=== PATIENT | female | born 1990 | race African-American/Black ===

== ENCOUNTER 2016-12-29 21:14 | Emergency (ER) | payer OTHER ==
[~2016-12-29] VITALS: Ht 157.5 cm; Wt 79.4 kg
[~2016-12-29 21:14] MED LIST: CIPR500T PO; METR500T PO; NAPR500T PO; OXYC-323 PO; PHEN-318 PO; SULF1TAB24 PO
[2016-12-29 21:29] VITALS: BP 132/65
--- NOTE | 2016-12-29 21:43 | PHYS DOC ---
Past Medical History Past Medical History: Other Additional Past Medical Histor: ectopic Past Surgical History: Other Additional Past Surgical Histo: ectopic , 2 Alcohol Use: Occasionally Drug Use: None Adult General Chief Complaint Chief Complaint: ABDOMINAL PAIN HPI HPI Patient is a 26 year old female who presents with complaint of right lower quadrant abdominal pain. Patient states her symptoms started yesterday and have progressively worsened today. Patient also states that she started her menstrual period today. Patient states that she is concerned because "this feels exactly like it did when I had my ectopic ." The patient states that the pain seems to improve if she applies pressure to her right lower quadrant. Patient denies any associated fever, nausea, vomiting, or diarrhea. The patient rates her pain currently as 8 out of 10. Patient denies radiation of pain into her back or groin. The patient has not taken any medications to help with her symptoms at this time. Pain seems to worsen with movement or with laughing. Review of Systems Review of Systems Constitutional: Denies fever or chills [] Eyes: Denies change in visual acuity, redness, or eye pain [] HENT: Denies nasal congestion or sore throat [] Respiratory: Denies cough or shortness of breath [] Cardiovascular: Denies chest pain or edema [] GI: Abdominal pain, denies nausea, vomiting, bloody stools or diarrhea [] : Vaginal bleeding, denies dysuria or hematuria [] Musculoskeletal: Denies back pain or joint pain [] Integument: Denies rash or skin lesions [] Neurologic: Denies headache, focal weakness or sensory changes [] Current Medications Current Medications Current Medications Medications (Trade) Dose Ordered Sig/[facility] Start Time Stop Time Status Last Admin Dose Admin Fentanyl Citrate (Fentanyl 2ml Vial) 50 mcg PRN Q15MIN PRN 12/29/16 21:45 12/30/16 21:44 12/29/16 22:21 50 MCG Info (Do NOT chart on this entry -- for MONITORING) 1 each PRN DAILY PRN 12/29/16 22:15 12/31/16 22:14 Iohexol (Omnipaque 300 Mg/ml) 75 ml 1X ONCE 12/29/16 22:30 12/29/16 22:31 DC Ondansetron HCl (Zofran) 4 mg 1X ONCE 12/29/16 22:00 12/29/16 22:01 DC 12/29/16 22:20 4 MG Sodium Chloride 1,000 ml @ 1,000 mls/hr Q1H 12/29/16 22:00 12/29/16 22:59 12/29/16 22:20 1,000 MLS/HR Allergies Allergies Allergies Coded Allergies Type Severity Reaction Last Updated Verified No Known Drug Allergies 12/27/14 No Physical Exam Physical Exam Constitutional: Alert, afebrile, appears in mild discomfort. [] HENT: Normocephalic, atraumatic, bilateral external ears normal, oropharynx moist, no oral exudates, nose normal. [] Eyes: PERRLA, EOMI, conjunctiva normal, no discharge. [] Neck: Normal range of motion, no tenderness, supple, no stridor. [] Cardiovascular:Heart rate regular rhythm, no murmur [] Lungs & Thorax: Bilateral breath sounds clear to auscultation [] Abdomen: Bowel sounds normal, soft, right lower quadrant and suprapubic tenderness to palpation, no guarding or rebound tenderness, no masses, no pulsatile masses. [] Skin: Warm, dry, no erythema, no rash. [] Back: No tenderness, no CVA tenderness. [] Extremities: No tenderness, no cyanosis, no clubbing, ROM intact, no edema. [] Neurologic: Alert and oriented X 3, normal motor function, normal sensory function, no focal deficits noted. [] Current Patient Data Vital Signs Vital Signs Date Time Temp Pulse Resp B/P (MAP) Pulse Ox O2 Delivery O2 Flow Rate FiO2 12/29/16 22:21 20 Room Air 12/29/16 21:29 97.7 94 132/65 (87) 98 97.7 Lab Values Laboratory Tests Test 12/29/16 20:35 12/29/16 21:25 12/29/16 21:42 POC Urine HCG, Qualitative Hcg negative (Negative) Urine Collection Type Void Urine Color Yellow Urine Clarity Clear Urine pH 7.5 Urine Specific Adger 1.025 Urine Protein Negative mg/dL (NEG-TRACE) Urine Glucose (UA) Negative mg/dL (NEG) Urine Ketones (Stick) Negative mg/dL (NEG) Urine Blood Moderate (NEG) Urine Nitrite Negative (NEG) Urine Bilirubin Negative (NEG) Urine Urobilinogen Dipstick 1.0 mg/dL (0.2 mg/dL) Urine Leukocyte Esterase Negative (NEG) Urine RBC 1-2 /HPF (0-2) Urine WBC 1-4 /HPF (0-4) Urine Squamous Epithelial Cells Few /LPF Urine Bacteria Few /HPF (0-FEW) Urine Mucus Slight /LPF White Blood Count 11.2 x10^3/uL (4.0-11.0) H Red Blood Count 4.40 x10^6/uL (3.50-5.40) Hemoglobin 12.6 g/dL (12.0-15.5) Hematocrit 38.6 % (36.0-47.0) Mean Corpuscular Volume 88 fL (79-100) Mean Corpuscular Hemoglobin 29 pg (25-35) Mean Corpuscular Hemoglobin Concent 33 g/dL (31-37) Red Cell Distribution Width 13.0 % (11.5-14.5) Platelet Count 230 x10^3/uL (140-400) Neutrophils (%) (Auto) 61 % (31-73) Lymphocytes (%) (Auto) 27 % (24-48) Monocytes (%) (Auto) 10 % (0-9) H Eosinophils (%) (Auto) 1 % (0-3) Basophils (%) (Auto) 1 % (0-3) Neutrophils # (Auto) 6.8 x10^3uL (1.8-7.7) Lymphocytes # (Auto) 3.0 x10^3/uL (1.0-4.8) Monocytes # (Auto) 1.1 x10^3/uL (0.0-1.1) Eosinophils # (Auto) 0.2 x10^3/uL (0.0-0.7) Basophils # (Auto) 0.1 x10^3/uL (0.0-0.2) Sodium Level 140 mmol/L (136-145) Potassium Level 3.6 mmol/L (3.5-5.1) Chloride Level 104 mmol/L (98-107) Carbon Dioxide Level 29 mmol/L (21-32) Anion Gap 7 (6-14) Blood Urea Nitrogen 16 mg/dL (7-20) Creatinine 0.9 mg/dL (0.6-1.0) Estimated GFR (Cockcroft-Gault) 92.3 BUN/Creatinine Ratio 18 (6-20) Glucose Level 93 mg/dL (70-99) Calcium Level 8.8 mg/dL (8.5-10.1) Total Bilirubin 0.3 mg/dL (0.2-1.0) Aspartate Amino Transferase (AST) 17 U/L (15-37) Alanine Aminotransferase (ALT) 28 U/L (14-59) Alkaline Phosphatase 59 U/L (46-116) Total Protein 7.5 g/dL (6.4-8.2) Albumin 3.6 g/dL (3.4-5.0) Albumin/Globulin Ratio 0.9 (1.0-1.7) L Lipase 183 U/L (73-393) Laboratory Tests 12/29/16 21:42 Laboratory Tests 12/29/16 21:42 Microbiology 12/29/16 Wet Prep - Final, Complete EKG EKG Not performed [] Radiology/Procedures Radiology/Procedures [facility] [address] [place] [address] IMAGING REPORT Signed PATIENT: TEODORO COPELAND ACCOUNT: [id number] : 1990 LOCATION: ER AGE: 26 SEX: F EXAM STATUS: REG ER ORD. PHYSICIAN: JENNIFER ALEX MD REASON: right-sided abdominal and adnexal pain PROCEDURE: PELVIS COMPLETE Indication: Right-sided abdominal pain and adnexal pain. Transabdominal and transvaginal sonography was performed. The uterus measures 8.3 x 4.1 x 3.9 cm. The endometrium is 9 mm in thickness. No uterine mass is seen. There are cervical nabothian cysts. Right ovary measures 2.9 x 2.2 x 1.7 cm. There is blood flow to the right ovary. The left ovary was not well visualized, but there appears to be blood flow present. No free fluid is seen. No definite noncompressible loop of bowel is seen. IMPRESSION: Limited study due to patient pain. No gross abnormality is detected. Electronically signed by: Gus Dasilva MD (12/29/2016 10:49 PM) [facility] DICTATED and SIGNED BY: GUS DASILVA MD DATE: 12/29/16 [id number] CC: JENNIFER ALEX MD; NO PCP ~ [facility] [address] [place] [address] IMAGING REPORT Signed PATIENT: TEODORO COPELAND ACCOUNT: [id number] : 1990 LOCATION: ER AGE: 26 SEX: F EXAM STATUS: REG ER ORD. PHYSICIAN: JENNIFER ALEX MD REASON: right lower quadrant abdominal pain PROCEDURE: CT ABD PELV W/ IV CONTRST ONLY Indication: Severe right lower quadrant pain. Axial imaging through the abdomen and pelvis was performed after the administration of intravenous contrast. One or more of the following individualized dose reduction techniques were utilized for this examination: 1. Automated exposure control 2. Adjustment of the mA and/or kV according to patient size 3. Use of iterative reconstruction technique No prior studies are available for comparison. The lung bases are clear. The liver and gallbladder are unremarkable. The pancreas and spleen are unremarkable. No adrenal mass is detected. The kidneys are unremarkable. The aorta is nonaneurysmal. The appendix is visualized and near the midline of the pelvis. The appendix is normal in size. No significant periappendiceal inflammation is identified. The small and large bowel loops are normal caliber. There is no ascites. The bladder and uterus are unremarkable. IMPRESSION: Unremarkable postcontrast CT of the abdomen and pelvis. No acute feature is detected. Electronically signed by: Gus Dasilva MD (12/29/2016 10:41 PM) [facility] DICTATED and SIGNED BY: GUS DASILVA MD DATE: 12/29/16 223 CC: JENNIFER ALEX MD; NO PCP ~ [] Course & Med Decision Making Course & Med Decision Making Pertinent Labs and Imaging studies reviewed. (See chart for details) Patient was given IV fentanyl, Zofran, and IV fluids in the emergency department. Patient's ultrasound and CT were negative for acute pathology. Patient's test was negative. Etiology of patient's symptoms are unclear but do not appear to be acutely surgical at this time. The patient will be discharged with prescription for Naprosyn and Delmar to help with symptoms. Advise follow-up in 2-3 days a primary doctor for reevaluation and return to emergency department for any worsening symptoms. Patient voiced understanding and in agreement with treatment plan. Dragon Disclaimer Dragon Disclaimer This electronic medical record was generated, in whole or in part, using a voice recognition dictation system. Departure Departure Impression: Primary Impression: Abdominal pain in female patient Disposition: HOME, SELF-CARE Condition: IMPROVED Referrals: NO PCP (PCP) Patient Instructions: Abdominal Pain, Women Additional Instructions: Follow-up with your primary doctor in 2-3 days for reevaluation. Return to the emergency department for any worsening symptoms. Scripts Hydrocodone/Apap 5-325 (NORCO 5-325 TABLET) 1 Each Tablet 1-2 TAB PO Q4-6HRS Y for PAIN, #15 TAB Prov: JENNIFER ALEX MD 12/29/16 Naproxen (NAPROSYN) 500 Mg Tablet 1 TAB PO BID Y for INFLAMMATION, #20 TAB 0 Refills Prov: JENNIFER ALEX MD 12/29/16 JENNIFER ALEX MD Dec 29, 2016 21:43
[2016-12-29 21:44] LABS: BILIRUBIN,URINE NEGATIVE (NEG); GLUCOSE,URINE NEGATIVE (NEG); NITRITE,URINE NEGATIVE (NEG); PH,URINE 7.5; PROTEIN,URINE NEGATIVE (NEG-TRACE)
[2016-12-29] MEDS ORDERED: fentaNYL PF VIAL 100 MCG/2 ML VIAL IV PRN (21:45)
[2016-12-29 21:50] LABS: BASO # 0.1 x10^3/uL (0.0-0.2); BASO % 1 % (0-3); EOS % 1 % (0-3); HEMATOCRIT 38.6 % (36.0-47.0); HEMOGLOBIN 12.6 g/dL (12.0-15.5); LYMPH % 27 % (24-48); MEAN CORPUSCULAR HEMOGLOBIN 29 pg (25-35); MEAN CORPUSCULAR HGB CONC 33 g/dL (31-37); MEAN CORPUSCULAR VOLUME 88 fL (79-100); MONO % 10 % (0-9); NEUT % 61 % (31-73); PLATELET COUNT 230 x10^3/uL (140-400); WHITE BLOOD COUNT 11.2 x10^3/uL (4.0-11.0)
[2016-12-29 21:55] LABS: BACTERIA,URINE FEW /HPF (0-FEW); SQUAMOUS EPITHELIAL CELL,UR FEW /LPF
[2016-12-29 21:59] LABS: CALCIUM 8.8 mg/dL (8.5-10.1); CREATININE 0.9 mg/dL (0.6-1.0); GFR 92.3; POTASSIUM 3.6 mmol/L (3.5-5.1)
[2016-12-29] MEDS ORDERED: IV NORMAL SALINE 1000ML BAG 1,000 ML IV SCH (22:00)
[2016-12-29] MEDS ORDERED: ONDANSETRON PF 4 MG/2 ML VIAL. IV ONE (22:00)
[2016-12-29 22:05] LABS: ALBUMIN 3.6 g/dL (3.4-5.0); ALBUMIN/GLOBULIN RATIO 0.9 (1.0-1.7); TOTAL BILIRUBIN 0.3 mg/dL (0.2-1.0); TOTAL PROTEIN 7.5 g/dL (6.4-8.2)
[2016-12-29] MEDS ORDERED: CONTRAST GIVEN MC PRN (22:15)
[2016-12-29] MEDS ORDERED: IOHEXOL 300 MG/ML 75 ML VIAL IV ONE (22:30)
--- NOTE | 2016-12-29 22:44 | RAD ---
Indication: Severe right lower quadrant pain. Axial imaging through the abdomen and pelvis was performed after the administration of intravenous contrast. One or more of the following individualized dose reduction techniques were utilized for this examination: 1. Automated exposure control 2. Adjustment of the mA and/or kV according to patient size 3. Use of iterative reconstruction technique No prior studies are available for comparison. The lung bases are clear. The liver and gallbladder are unremarkable. The pancreas and spleen are unremarkable. No adrenal mass is detected. The kidneys are unremarkable. The aorta is nonaneurysmal. The appendix is visualized and near the midline of the pelvis. The appendix is normal in size. No significant periappendiceal inflammation is identified. The small and large bowel loops are normal caliber. There is no ascites. The bladder and uterus are unremarkable. IMPRESSION: Unremarkable postcontrast CT of the abdomen and pelvis. No acute feature is detected. Electronically signed by: Gus Dasilva MD (12/29/2016 10:41 PM) [facility]
--- NOTE | 2016-12-29 22:52 | RAD ---
Indication: Right-sided abdominal pain and adnexal pain. Transabdominal and transvaginal sonography was performed. The uterus measures 8.3 x 4.1 x 3.9 cm. The endometrium is 9 mm in thickness. No uterine mass is seen. There are cervical nabothian cysts. Right ovary measures 2.9 x 2.2 x 1.7 cm. There is blood flow to the right ovary. The left ovary was not well visualized, but there appears to be blood flow present. No free fluid is seen. No definite noncompressible loop of bowel is seen. IMPRESSION: Limited study due to patient pain. No gross abnormality is detected. Electronically signed by: Gus Dasilva MD (12/29/2016 10:49 PM) [facility]
[2016-12-29] MEDS ORDERED: NAPR500T PO (23:02)
[2016-12-29] MEDS ORDERED: HYDR-971 PO (23:02)
== END 2016-12-29 23:13 | disposition home or self-care (01) ==
LOC: ER 21:14
DX: R10.31 Right lower quadrant pain (principal); N93.9 Abnormal uterine and vaginal bleeding, unspecified
CPT/HCPCS: 36415; 74177; 76856; 80053; 81001; 81025; 83690; 85027; 87491; 87591; 96361; 96374; 96375; 99285; J2405; J3010; J7030; Q0111; 96376

== ENCOUNTER 2017-04-17 17:49 | Emergency (ER) | payer SELFPAY ==
[~2017-04-17] VITALS: Ht 157.5 cm; Wt 79.4 kg
[~2017-04-17 17:49] MED LIST changes: +HYDR-971 PO
[2017-04-17 19:07] LABS: BASO % 1 % (0-3); EOS % 2 % (0-3); HEMOGLOBIN 12.5 g/dL (12.0-15.5); LYMPH # 2.3 x10^3/uL (1.0-4.8); LYMPH % 30 % (24-48); MEAN CORPUSCULAR HEMOGLOBIN 29 pg (25-35); MEAN CORPUSCULAR HGB CONC 33 g/dL (31-37); MEAN CORPUSCULAR VOLUME 88 fL (79-100); MONO % 11 % (0-9); NEUT % 57 % (31-73); PLATELET COUNT 225 x10^3/uL (140-400); RED BLOOD COUNT 4.32 x10^6/uL (3.50-5.40); RED CELL DISTRIBUTION WIDTH 13.5 % (11.5-14.5); WHITE BLOOD COUNT 7.6 x10^3/uL (4.0-11.0)
[2017-04-17 19:17] LABS: CALCIUM 9.1 mg/dL (8.5-10.1); CREATININE 0.6 mg/dL (0.6-1.0); GFR 146.2; POTASSIUM 3.6 mmol/L (3.5-5.1)
[2017-04-17 19:23] LABS: ALBUMIN 3.8 g/dL (3.4-5.0); ALBUMIN/GLOBULIN RATIO 1.1 (1.0-1.7); TOTAL BILIRUBIN 0.2 mg/dL (0.2-1.0); TOTAL PROTEIN 7.3 g/dL (6.4-8.2)
--- NOTE | 2017-04-17 19:58 | PHYS DOC ---
Past Medical History Past Medical History: , Other Additional Past Medical Histor: ectopic Past Surgical History: Other Additional Past Surgical Histo: ectopic , 2 Alcohol Use: Occasionally Drug Use: None Adult General Chief Complaint Chief Complaint: ABDOMINAL PAIN IN HPI HPI Patient is a 27 year old female. Presents to the ED with right-sided lower abdominal pain which began yesterday and is worse today. Today, it hurts when she moves, walks, or hits a bump in the car. She denies vaginal bleeding. Patient believes she is . Patient states on March 05 she was 5 weeks and she took the " pill". She bled until March 12 and then stopped. Patient has been sexually active since then but she used a condom and she also took plan B the next day. She is not on any kind of regularly scheduled contraception, no IUD, etc. Patient last Wednesday took a test and it was positive. She then made an appointment for follow-up and that appointment is coming up on April 23. Patient has had a normal appetite. She's had no vomiting. No GI symptoms. She does still have her appendix. She's never had pain like this before. Review of Systems Review of Systems Constitutional: Denies fever or chills [] Respiratory: Denies cough or shortness of breath [] GI: As in history of present illness : Denies urinary symptoms, denies vaginal bleeding Musculoskeletal: Denies back pain or joint pain [] Integument: Denies rash or skin lesions [] All other systems were reviewed and found to be within normal limits, except as documented in this note. Allergies Allergies Allergies Coded Allergies Type Severity Reaction Last Updated Verified No Known Drug Allergies 12/27/14 No Physical Exam Physical Exam Constitutional: Well developed, well nourished, no acute distress, non-toxic appearance. Alert, appropriate, vital signs stable. HENT: Normocephalic, atraumatic, bilateral external ears normal, nose normal. [ ] Eyes: conjunctiva normal, no discharge. [] Neck: Normal range of motion, no stridor. [] Cardiovascular:Heart rate regular rhythm, no murmur [] Lungs & Thorax: Bilateral breath sounds clear to auscultation [] Abdomen: Bowel sounds normal, soft, nondistended, no masses, no pulsatile masses. Tenderness to palpation in the right lower quadrant. Pain in the right lower quadrant with palpation elsewhere on the abdomen. No rebound or guarding. The pain/tenderness is present from McBurney's point to the adnexal area, does not seem to be concentrated or primarily at McBurney's point. Skin: Warm, dry, no erythema, no rash. [] Extremities: No tenderness, no cyanosis, no clubbing, ROM intact, no edema. [] Neurologic: Alert and oriented X 3, normal motor function, normal sensory function, no focal deficits noted. [] Current Patient Data Vital Signs Vital Signs Date Time Temp Pulse Resp B/P (MAP) Pulse Ox O2 Delivery O2 Flow Rate FiO2 04/17/17 19:01 72 119/63 (81) 98 Room Air 04/17/17 17:55 98.2 18 98.2 Lab Values Laboratory Tests Test 04/17/17 18:05 04/17/17 18:55 POC Urine HCG, Qualitative Hcg positive (Negative) White Blood Count 7.6 x10^3/uL (4.0-11.0) Red Blood Count 4.32 x10^6/uL (3.50-5.40) Hemoglobin 12.5 g/dL (12.0-15.5) Hematocrit 38.0 % (36.0-47.0) Mean Corpuscular Volume 88 fL (79-100) Mean Corpuscular Hemoglobin 29 pg (25-35) Mean Corpuscular Hemoglobin Concent 33 g/dL (31-37) Red Cell Distribution Width 13.5 % (11.5-14.5) Platelet Count 225 x10^3/uL (140-400) Neutrophils (%) (Auto) 57 % (31-73) Lymphocytes (%) (Auto) 30 % (24-48) Monocytes (%) (Auto) 11 % (0-9) H Eosinophils (%) (Auto) 2 % (0-3) Basophils (%) (Auto) 1 % (0-3) Neutrophils # (Auto) 4.3 x10^3uL (1.8-7.7) Lymphocytes # (Auto) 2.3 x10^3/uL (1.0-4.8) Monocytes # (Auto) 0.8 x10^3/uL (0.0-1.1) Eosinophils # (Auto) 0.1 x10^3/uL (0.0-0.7) Basophils # (Auto) 0.0 x10^3/uL (0.0-0.2) Maternal Serum HCG Beta Subunit 338 mIU/mL (0-5) H Sodium Level 137 mmol/L (136-145) Potassium Level 3.6 mmol/L (3.5-5.1) Chloride Level 103 mmol/L (98-107) Carbon Dioxide Level 28 mmol/L (21-32) Anion Gap 6 (6-14) Blood Urea Nitrogen 14 mg/dL (7-20) Creatinine 0.6 mg/dL (0.6-1.0) Estimated GFR (Cockcroft-Gault) 146.2 BUN/Creatinine Ratio 23 (6-20) H Glucose Level 94 mg/dL (70-99) Calcium Level 9.1 mg/dL (8.5-10.1) Total Bilirubin 0.2 mg/dL (0.2-1.0) Aspartate Amino Transferase (AST) 15 U/L (15-37) Alanine Aminotransferase (ALT) 15 U/L (14-59) Alkaline Phosphatase 52 U/L (46-116) Total Protein 7.3 g/dL (6.4-8.2) Albumin 3.8 g/dL (3.4-5.0) Albumin/Globulin Ratio 1.1 (1.0-1.7) Laboratory Tests 04/17/17 18:55 Laboratory Tests 04/17/17 18:55 EKG EKG [] Radiology/Procedures Radiology/Procedures Ultrasound read by the radiologist and I discussed findings with the radiologist. Small quantity of free fluid in the cul-de-sac. There is a small focus of different echogenicity of the endometrium could be remnants of previous or blood clot. I don't think it's a blood clot because the patient is not having vaginal bleeding. Also noted a "minimally complex" cyst of the right ovary. I discussed with the radiologist whether this could possibly be an ectopic . He does not think so because it is not increased vascularity and it really does look like an almost simple cyst of the ovary he states. However, we cannot rule out this possibility, especially since the use of the pill.[] Course & Med Decision Making Course & Med Decision Making Pertinent Labs and Imaging studies reviewed. (See chart for details) 27-year-old female who had a positive test following the use of the pill presents with right sided lower abdominal pain. Today her test is positive. Her Quant is 338. The patient may have aborted after using the pill 03/05 and may have become again and subsequently, or possibly she had a missed or incomplete at that time. We will check an ultrasound, patient is agreeable to that plan., Patient's blood type is B+. I discussed the ultrasound findings with Dr. Khan, CONSULTANT on-call. We agreed that we believe it will be safe for the patient to be discharged in stable condition and with good return precautions, follow up on Wednesday for repeat Quant , and continue to follow up with the provider who is overseeing her care at this time. Patient is stable and not having any bleeding. See instructions for plan. [] Dragon Disclaimer Dragon Disclaimer This electronic medical record was generated, in whole or in part, using a voice recognition dictation system. Departure Departure Impression: Primary Impression: Disposition: HOME, SELF-CARE Condition: STABLE Referrals: NO PCP (PCP) ADAL KHAN Jr, MD Additional Instructions: As we discussed, today, your quantitative beta hCG is 338. It's possible that you have gotten again since your recent treatment with the pill. Another possibility is that you still have some retained tissue that is causing beta hCG in your bloodstream. There is a very slight possibility that you could have a right-sided ectopic . The radiologist does not believe your ultrasound shows an ectopic, but this needs to be followed carefully. You need to have repeat quantitative beta hCG on Wednesday, Wednesday at the latest. This should be compared to the result today of 338. Your CONSULTANT doctor can decide what to do based on that. I have prescribed a few pain pills for use as needed, no driving or working while taking these. This is an opiate, take sparingly. Scripts Hydrocodone/Apap 5-325 (NORCO 5-325 TABLET) 1 Each Tablet 1-2 TAB PO Q4-6HRS for PAIN, #10 TAB Prov: NIC GUADARRAMA MD 04/17/17 NIC GUADARRAMA MD Apr 17, 2017 19:58
--- NOTE | 2017-04-17 20:20 | RAD ---
OB <14 WKS W/TV History: Right lower quadrant pain for one day Comparison: None. Findings: Multiple transabdominal sonographic images of the pelvis are submitted. Uterus measured 8.1 x 4.9 x 5.77 m. Left ovary measured 2.4 x 1.8 x 1.8 cm with normal color flow. Right ovary measured 2.7 x 4.2 x 2.4 cm with normal color flow. There is small hypoechoic lesion of the right ovary. Transvaginal ultrasound: Multiple transvaginal sonographic images of the pelvis are submitted. There is a small quantity of free fluid in the posterior cul-de-sac. Uterus measured 9 x 4.7 x 5.4 cm. There is 0.8 cm focus of different echogenicity of the endometrium, somewhat heterogeneous in appearance not associated with internal vascularity on color Doppler imaging. Endometrium measured up to 1.9 cm. Right ovary measured 3.4 x 2.4 x 2.9 cm. There is a hypoechoic lesion of the right ovary up to 2.1 x 2.7 x 1.3 cm, increased through transmission with minimal internal echoes. Left ovary measured 2.4 x 1.9 x 2.1 cm, normal color flow. Impression: 1. There is a small quantity of nonspecific free fluid in the cul-de-sac. There is a small focus of different echogenicity of the endometrium although not associated with internal vascularity, could be due to remnants of previous or blood clot. 2. There is minimally complex cyst of the right ovary. Electronically signed by: Ugo Guerrero MD (04/17/2017 8:17 PM) [facility]
[2017-04-17] MEDS ORDERED: HYDR-971 PO (20:56)
[2017-04-17 21:03] VITALS: BP 115/63
== END 2017-04-17 21:25 | disposition home or self-care (01) ==
LOC: ER 17:49
DX: O26.891 Other specified pregnancy related conditions, first trimester (principal); R10.31 Right lower quadrant pain; Z3A.01 Less than 8 weeks gestation of pregnancy
CPT/HCPCS: 36415; 76801; 76817; 80053; 81025; 84702; 85025; 86900; 86901; 99285-25

== ENCOUNTER → 2017-04-19 | Outpatient (CLI) | payer SELFPAY ==
[2017-04-17 21:03] VITALS: BP 115/63
[~2017-04-19] MED LIST changes: +NAPR-683 PO; -NAPR500T PO
== END | disposition home or self-care (01) ==
LOC: LAB 11:12
PROVIDERS: ATTEND Obstetrics & Gynecology
DX: O09.91 Supervision of high risk pregnancy, unspecified, first trimester (principal); Z3A.11 11 weeks gestation of pregnancy
CPT/HCPCS: 36415; 84702

== ENCOUNTER 2018-03-15 12:22 | Emergency (ER) | payer SELFPAY ==
[2018-03-16] MEDS ORDERED: HYDR-971 PO (17:36)
[2018-03-16] MEDS ORDERED: SULF1TAB24 PO (17:36)
== END 2018-03-15 13:42 | disposition left against medical advice (07) ==
LOC: ER 12:22
DX: N93.9 Abnormal uterine and vaginal bleeding, unspecified (principal); Z53.21 Procedure and treatment not carried out due to patient leaving prior to being seen by health care provider

== ENCOUNTER 2018-03-16 14:48 | Emergency (ER) | payer SELFPAY ==
[~2018-03-16] VITALS: Ht 157.5 cm; Wt 76.2 kg
[2018-03-16 15:10] VITALS: BP 121/65
--- NOTE | 2018-03-16 15:26 | PHYS DOC ---
Past Medical History Past Medical History: , Other Additional Past Medical Histor: ectopic Past Surgical History: Other Additional Past Surgical Histo: ectopic , 2 Alcohol Use: Occasionally Drug Use: None Adult General Chief Complaint Chief Complaint: ABDOMINAL PAIN HPI HPI Patient is a 28 year old AA female who presents to the emergency room with complaints of irregular vaginal bleeding and lower abdominal pain. She states her last menstrual period was on February 24 through March [id number]. On March 08 she began to have vaginal bleeding again. She states that the bleeding at first was heavy but for the last several days has just been spotting whenever she goes to the bathroom. Patient states she takes lo- Loestrin control and that she has a hard time remembering when she takes a pill. She reports that she misses pills frequently. She denies any vaginal itching, odor, dysuria, increased urinary frequency, low back pain, nausea, vomiting, or diarrhea. She denies any concerns of . Patient states that she is currently taking Flagyl that was prescribed by her primary care doctor because she often gets BV after having her menstrual cycle. She also states that she took a dose of Diflucan a few days ago because she did have some vaginal itching but currently denies any of those symptoms. Review of Systems Review of Systems Constitutional: Denies fever or chills [] HENT: Denies nasal congestion or sore throat [] Respiratory: Denies cough or shortness of breath [] Cardiovascular: No additional information not addressed in HPI [] GI: Denies constipation, nausea, vomiting, or diarrhea; reports lower abdominal pain [] : Denies increased frequency, dysuria or hematuria; see HPI [] Musculoskeletal: Denies back pain or joint pain [] Integument: Denies rash or skin lesions [] Neurologic: Denies headache, focal weakness or sensory changes [] All other systems were reviewed and found to be within normal limits, except as documented in this note. Current Medications Current Medications Current Medications Medications (Trade) Dose Ordered Sig/Tanner Start Time Stop Time Status Last Admin Dose Admin Azithromycin (Zithromax) 1,000 mg 1X ONCE 03/16/18 16:00 03/16/18 16:01 DC 03/16/18 16:24 1,000 MG Ceftriaxone Sodium (Rocephin Im) 250 mg 1X ONCE 03/16/18 16:00 03/16/18 16:01 DC 03/16/18 16:24 250 MG Allergies Allergies Allergies Coded Allergies Type Severity Reaction Last Updated Verified No Known Drug Allergies 12/27/14 No Physical Exam Physical Exam Constitutional: Well developed, well nourished, no acute distress, non-toxic appearance. [] HENT: Normocephalic, atraumatic, bilateral external ears normal, oropharynx moist, no oral exudates, nose normal. [] Eyes: PERRLA, conjunctiva normal, no discharge. [] Pelvic Exam: Asphalt Heater Tender present Domi RN Abdomen: Nontender External Genitalia: Normal Skin Speculum: Normal vaginal mucosa, normal cervical discharge, no active bleeding Bimanual: No adnexal masses, L adnexal tenderness, No CMT Skin: Warm, dry, no erythema, no rash. [] Extremities: No cyanosis, no clubbing, ROM intact, no edema. [] Neurologic: Alert and oriented X 3, normal motor function, normal sensory function, no focal deficits noted. [] Psychologic: Affect normal, judgement normal, mood normal. [] Current Patient Data Vital Signs Vital Signs Date Time Temp Pulse Resp B/P (MAP) Pulse Ox O2 Delivery O2 Flow Rate FiO2 03/16/18 15:10 97.9 68 12 121/65 (83) 100 Room Air 97.9 Lab Values Laboratory Tests Test 03/16/18 15:00 03/16/18 15:27 Urine Collection Type Unknown Urine Color Misty Urine Clarity Clear Urine pH 6.0 Urine Specific [place] >=1.030 Urine Protein Negative mg/dL (NEG-TRACE) Urine Glucose (UA) Negative mg/dL (NEG) Urine Ketones (Stick) Trace mg/dL (NEG) Urine Blood Negative (NEG) Urine Nitrite Negative (NEG) Urine Bilirubin Negative (NEG) Urine Urobilinogen Dipstick 0.2 mg/dL (0.2 mg/dL) Urine Leukocyte Esterase Small (NEG) Urine RBC 1-2 /HPF (0-2) Urine WBC 5-10 /HPF (0-4) Urine Squamous Epithelial Cells Many /LPF Urine Bacteria Moderate /HPF (0-FEW) Urine Mucus Marked /LPF POC Urine HCG, Qualitative Hcg negative (Negative) Microbiology 03/16/18 Wet Prep - Final, Complete Laboratory Tests Test 03/16/18 15:00 03/16/18 15:27 Urine Collection Type Unknown Urine Color Misty Urine Clarity Clear Urine pH 6.0 Urine Specific [place] >=1.030 Urine Protein Negative mg/dL (NEG-TRACE) Urine Glucose (UA) Negative mg/dL (NEG) Urine Ketones (Stick) Trace mg/dL (NEG) Urine Blood Negative (NEG) Urine Nitrite Negative (NEG) Urine Bilirubin Negative (NEG) Urine Urobilinogen Dipstick 0.2 mg/dL (0.2 mg/dL) Urine Leukocyte Esterase Small (NEG) Urine RBC 1-2 /HPF (0-2) Urine WBC 5-10 /HPF (0-4) Urine Squamous Epithelial Cells Many /LPF Urine Bacteria Moderate /HPF (0-FEW) Urine Mucus Marked /LPF POC Urine HCG, Qualitative Hcg negative (Negative) Microbiology 03/16/18 Wet Prep - Final, Complete EKG EKG [] Radiology/Procedures Radiology/Procedures PROCEDURE: PELVIS ULTRASOUND Pelvic ultrasound 03/16/2018 CLINICAL HISTORY: Left pelvic pain. TECHNIQUE: Using the distended urinary bladder as a sonographic window, a real-time ultrasound examination of the pelvis performed. Multiple images were obtained. FINDINGS: Comparison is made to a CT scan of the pelvis dated 12/29/2016. The uterus is within normal limits in size and echogenicity. It measures 9.4 x 5.0 x 5.8 cm in longitudinal, transverse, and AP dimensions. No focal abnormality of the uterus is seen. The endometrial echo complex measures 1 cm in thickness which is within normal limits. The r right ovary is normal in size and echogenicity. It measures 2.7 x 1.5 x 2.5 cm in size. The left ovary is enlarged. It measures 5.6 x 5.9 x 6.5 cm in size. Within the left ovary a rounded anechoic structure with internal echoes is seen which measures 5.2 cm in greatest diameter. This is felt to most likely represent a hemorrhagic cyst. Normal color flow and pulse Doppler imaging to both ovaries is seen. No free fluid is noted. IMPRESSION: 5.2 cm probable hemorrhagic cyst is seen involving the left ovary. [] Course & Med Decision Making Course & Med Decision Making Pertinent Labs and Imaging studies reviewed. (See chart for details) 1720- Spoke with Dr. Shaw will have patient follow up in his office at 10:00 on Wednesday Dx: hemorrhagic L ovarian cyst, UTI Prescriptions for bactrim DS and hydrocodone written. Pt instructed to take 600 mg of ibuprofen 3-4x a day. Follow up with Dr. Shaw in his office on Wednesday at 10:00. Increase clear fluids. Return to the ER if symptoms worsen. Patient verbalized an understanding of home care, medications, follow-up, and return to ED instructions and was in agreement with the plan of care. [] Dragon Disclaimer Dragon Disclaimer This electronic medical record was generated, in whole or in part, using a voice recognition dictation system. Departure Departure Impression: Primary Impression: Hemorrhagic cyst of left ovary Additional Impression: UTI (urinary tract infection) Disposition: HOME, SELF-CARE Condition: STABLE Referrals: NO PCP (PCP) Patient Instructions: Ovarian Cyst, [id number], Urinary Tract Infection, Easy -to-Read Additional Instructions: Fill prescriptions and take as directed. Take 600 mg of ibuprofen 3-4x a day. Follow up with Dr. Shaw in his office on Wednesday at 10:00. Increase clear fluids. Return to the ER if symptoms worsen. Scripts Hydrocodone/Apap 5-325 (NORCO 5-325 TABLET) 1 Each Tablet 1 TAB PO PRN Q6HRS PRN for PAIN for 3 Days, #12 TAB 0 Refills Prov: TERRIE FLOWERS INDUSTRIAL PSYCHOLOGY PROFESSOR 03/16/18 Sulfamethoxazole/Trimethoprim (BACTRIM DS TABLET) 1 Each Tablet 1 TAB PO BID, #10 TAB Prov: TERRIE FLOWERS INDUSTRIAL PSYCHOLOGY PROFESSOR 03/16/18 Problem Qualifiers Additional Impression: UTI (urinary tract infection) Urinary tract infection type: site unspecified Hematuria presence: without hematuria Qualified Codes: N39.0 - Urinary tract infection, site not specified TERRIE FLOWERS INDUSTRIAL PSYCHOLOGY PROFESSOR Mar 16, 2018 15:26
[2018-03-16 15:32] LABS: BILIRUBIN,URINE NEGATIVE (NEG); CLARITY,URINE CLEAR; COLOR,URINE AMBER; NITRITE,URINE NEGATIVE (NEG); PROTEIN,URINE NEGATIVE (NEG-TRACE); UROBILINOGEN,URINE 0.2 mg/dL (0.2 mg/dL)
[2018-03-16 15:57] LABS: BACTERIA,URINE MODERATE /HPF (0-FEW); SQUAMOUS EPITHELIAL CELL,UR MANY /LPF
[2018-03-16] MEDS ORDERED: AZITHROMYCIN 250 MG TABLET. PO ONE (16:00)
[2018-03-16] MEDS ORDERED: cefTRIAXone IM 250 MG VIAL IM ONE (16:00)
--- NOTE | 2018-03-16 16:51 | RAD ---
Pelvic ultrasound 03/16/2018 CLINICAL HISTORY: Left pelvic pain. TECHNIQUE: Using the distended urinary bladder as a sonographic window, a real-time ultrasound examination of the pelvis performed. Multiple images were obtained. FINDINGS: Comparison is made to a CT scan of the pelvis dated 12/29/2016. The uterus is within normal limits in size and echogenicity. It measures 9.4 x 5.0 x 5.8 cm in longitudinal, transverse, and AP dimensions. No focal abnormality of the uterus is seen. The endometrial echo complex measures 1 cm in thickness which is within normal limits. The r right ovary is normal in size and echogenicity. It measures 2.7 x 1.5 x 2.5 cm in size. The left ovary is enlarged. It measures 5.6 x 5.9 x 6.5 cm in size. Within the left ovary a rounded anechoic structure with internal echoes is seen which measures 5.2 cm in greatest diameter. This is felt to most likely represent a hemorrhagic cyst. Normal color flow and pulse Doppler imaging to both ovaries is seen. No free fluid is noted. IMPRESSION: 5.2 cm probable hemorrhagic cyst is seen involving the left ovary. Electronically signed by: Hasmukh Weeks MD (03/16/2018 4:48 PM) [id number]
[2018-03-16] MEDS ORDERED: SULF1TAB24 PO (17:36)
[2018-03-16] MEDS ORDERED: HYDR-971 PO (17:36)
[2018-03-17 15:26] LABS: GC PROBE Negative (Negative)
== END 2018-03-16 17:48 | disposition home or self-care (01) ==
LOC: ER 14:48
DX: N83.202 Unspecified ovarian cyst, left side (principal); N39.0 Urinary tract infection, site not specified; N93.8 Other specified abnormal uterine and vaginal bleeding
CPT/HCPCS: 76856; 81001; 81025; 87491; 87591; 96372; 99285; J0696; Q0111; Q0144; 87086

== ENCOUNTER 2018-04-14 10:58 | Emergency (ER) | payer SELFPAY ==
[~2018-04-14] VITALS: Ht 157.5 cm; Wt 73.5 kg
[~2018-04-14 10:58] MED LIST changes: +HYDR-3164 PO; -HYDR-971 PO
[2018-04-14 11:10] VITALS: BP 111/65
[2018-04-14 11:29] LABS: BILIRUBIN,URINE NEGATIVE (NEG); CLARITY,URINE CLEAR; COLOR,URINE YELLOW; NITRITE,URINE NEGATIVE (NEG); PH,URINE 5.5; PROTEIN,URINE NEGATIVE (NEG-TRACE); UROBILINOGEN,URINE 0.2 mg/dL (0.2 mg/dL)
[2018-04-14 11:34] LABS: SQUAMOUS EPITHELIAL CELL,UR MANY /LPF
[2018-04-14 11:35] LABS: BACTERIA,URINE MANY /HPF (0-FEW)
[2018-04-14 11:36] LABS: RBC,URINE 0 /HPF (0-2); WBC,URINE RARE /HPF (0-4)
--- NOTE | 2018-04-14 11:37 | PHYS DOC ---
Past Medical History Past Medical History: , Other Additional Past Medical Histor: ectopic , BV, OVARIAN CYST Past Surgical History: Other Additional Past Surgical Histo: ectopic , 2 Alcohol Use: Occasionally Drug Use: None Adult General Chief Complaint Chief Complaint: VAGINAL PROBLEM HPI HPI Patient is a 28 year old AA (and odor for the last week. She states she has a history of bacterial vaginosis and feels like this is what she is having again. Patient took 2 doses of Diflucan last week with no reduction in her symptoms. She denies any back pain, abdominal pain, pelvic pain, dysuria, urinary frequency, or hematuria. She denies any concerns of sexually transmitted diseases. She states that she was treated prophylactically with a shot and 4 pills 2 weeks ago for suspected sexually transmitted infection and the culture results came back negative. His any nausea, vomiting, diarrhea, or fever. SHe also denies any vaginal itching. Review of Systems Review of Systems Constitutional: Denies fever or chills [] GI: Denies abdominal pain, nausea, vomiting, or diarrhea [] : See history of present illness Musculoskeletal: Denies back pain Integument: Denies rash or skin lesions [] Neurologic: Denies headache, focal weakness or sensory changes [] All other systems were reviewed and found to be within normal limits, except as documented in this note. Allergies Allergies Allergies Coded Allergies Type Severity Reaction Last Updated Verified No Known Drug Allergies 12/27/14 No Physical Exam Physical Exam Constitutional: Well developed, well nourished, no acute distress, non-toxic appearance. [] HENT: Normocephalic, atraumatic, bilateral external ears normal, nose normal. [ ] Eyes: PERRLA, conjunctiva normal, no discharge. [] Pelvic Exam: Machine Sprayer present Liana RN Abdomen: Nontender External Genitalia: Normal Skin Speculum: Large amount of creamy white vaginal discharge is malodorous, normal vaginal mucosa, normal cervical discharge Bimanual: No adnexal masses or tenderness, No CMT Skin: Warm, dry, no erythema, no rash. [] Neurologic: Alert and oriented X 3, normal motor function, normal sensory function, no focal deficits noted. [] Psychologic: Affect normal, judgement normal, mood normal. [] Current Patient Data Vital Signs Vital Signs Date Time Temp Pulse Resp B/P (MAP) Pulse Ox O2 Delivery O2 Flow Rate FiO2 11/22/18 11:10 98.1 73 20 111/65 (80) 99 Room Air 98.1 Lab Values Laboratory Tests Test 04/14/18 11:11 04/14/18 11:12 Urine Collection Type Unknown Urine Color Yellow Urine Clarity Clear Urine pH 5.5 Urine Specific [place] >=1.030 Urine Protein Negative mg/dL (NEG-TRACE) Urine Glucose (UA) Negative mg/dL (NEG) Urine Ketones (Stick) Trace mg/dL (NEG) Urine Blood Negative (NEG) Urine Nitrite Negative (NEG) Urine Bilirubin Negative (NEG) Urine Urobilinogen Dipstick 0.2 mg/dL (0.2 mg/dL) Urine Leukocyte Esterase Negative (NEG) Urine RBC 0 /HPF (0-2) Urine WBC Rare /HPF (0-4) Urine Squamous Epithelial Cells Many /LPF Urine Bacteria Many /HPF (0-FEW) Urine Mucus Marked /LPF POC Urine HCG, Qualitative Hcg negative (Negative) Microbiology 04/14/18 Wet Prep - Final, Complete EKG EKG [] Radiology/Procedures Radiology/Procedures [] Course & Med Decision Making Course & Med Decision Making Pertinent Labs and Imaging studies reviewed. (See chart for details) Dx: bacterial vaginosis Pt declined treatment for gonorrhea and chlamydia, states she was treated here a few weeks ago and cultures were negative. Pt advised to follow up with cx results and if positive she needs to be treated. Rx for flagyl. Follow up with OBgyn or PCP, return to ER if symptoms worsen. Patient verbalized an understanding of home care, medications, follow-up, and return to ED instructions and was in agreement with the plan of care. [] Dragon Disclaimer Dragon Disclaimer This electronic medical record was generated, in whole or in part, using a voice recognition dictation system. Departure Departure Impression: Primary Impression: Bacterial vaginosis Disposition: HOME, SELF-CARE Condition: STABLE Referrals: NO PCP (PCP) Patient Instructions: Bacterial Vaginosis, [id number] Additional Instructions: Fill the prescription and use as directed. Your STD testing will not be complete for 48 hours, you declined treatment for STDs today, if one or both of these tests is positive you still need to be treated. Follow up with your PCP or OBGyn as needed, return to the ER if symptoms worsen. Scripts Metronidazole (FLAGYL) 500 Mg Tablet 1 TAB PO BID, #14 TAB Prov: TERRIE FLOWERS APRN 04/14/18 TERRIE FLOWERS APRN Apr 14, 2018 11:37
[2018-04-14] MEDS ORDERED: METR500T PO (11:53)
[2018-04-18 12:12] LABS: GC PROBE Negative (Negative)
== END 2018-04-14 12:02 | disposition home or self-care (01) ==
LOC: ER 10:58
DX: N76.0 Acute vaginitis (principal); B96.89 Other specified bacterial agents as the cause of diseases classified elsewhere; Z98.890 Other specified postprocedural states
CPT/HCPCS: 81001; 81025; 87086; 87491; 87591; 99283; Q0111

== ENCOUNTER 2018-10-11 12:00 | Emergency (ER) | payer SELFPAY ==
[~2018-10-11] VITALS: Ht 157.5 cm; Wt 73.5 kg
[~2018-10-11 12:00] MED LIST changes: -OXYC-323 PO; +OXYC1TAB15 PO
[2018-10-11 12:05] VITALS: BP 118/72
[2018-10-11 12:28] LABS: BILIRUBIN,URINE NEGATIVE (NEG); CLARITY,URINE CLEAR; COLOR,URINE YELLOW; NITRITE,URINE NEGATIVE (NEG); PH,URINE 8.5; PROTEIN,URINE 30 mg/dL (NEG-TRACE)
[2018-10-11 12:44] LABS: SQUAMOUS EPITHELIAL CELL,UR MANY /LPF
[2018-10-11 12:46] LABS: BACTERIA,URINE MOD /HPF (0-FEW); RBC,URINE 0 /HPF (0-2)
[2018-10-11 13:34] LABS: BASO % 1 % (0-3); EOS # 0.1 x10^3/uL (0.0-0.7); EOS % 2 % (0-3); HEMATOCRIT 38.9 % (36.0-47.0); HEMOGLOBIN 12.8 g/dL (12.0-15.5); LYMPH # 1.6 x10^3/uL (1.0-4.8); LYMPH % 23 % (24-48); MEAN CORPUSCULAR HEMOGLOBIN 29 pg (25-35); MEAN CORPUSCULAR HGB CONC 33 g/dL (31-37); MEAN CORPUSCULAR VOLUME 88 fL (79-100); MONO # 0.8 x10^3/uL (0.0-1.1); MONO % 11 % (0-9); NEUT # 4.6 x10^3uL (1.8-7.7); NEUT % 65 % (31-73); PLATELET COUNT 234 x10^3/uL (140-400); RED BLOOD COUNT 4.41 x10^6/uL (3.50-5.40); RED CELL DISTRIBUTION WIDTH 13.6 % (11.5-14.5); WHITE BLOOD COUNT 7.1 x10^3/uL (4.0-11.0)
[2018-10-11 13:41] LABS: CREATININE 0.7 mg/dL (0.6-1.0); GFR 121.5; POTASSIUM 4.4 mmol/L (3.5-5.1)
--- NOTE | 2018-10-11 14:17 | RAD ---
OB <14 WKS W/TV History: Pelvic pain, spotting, positive test Comparison: 03/16/2018 Findings: Multiple transabdominal sonographic images of pelvis are submitted. Uterus measured 8.9 x 4.9 x 5.3 cm. Endometrium measured about 1.6 cm in thickness, no discrete intrauterine gestational sac demonstrated. Ovaries are not demonstrated. Transvaginal ultrasound: Multiple transvaginal sonographic images of pelvis are submitted. Endometrium measured about 1.3 cm, no discrete intrauterine gestational sac. No free fluid is demonstrated. There is a focus of heterogeneous echogenicity of the cervix up to 1.1 cm in size with increased through transmission. Right ovary measured 1.7 x 2.7 x 4.3 cm with normal low resistance vascularity color flow. There is a focus of somewhat different echogenicity of the right ovary about 2.3 x 2.3 cm, internal echoes present with slight increased through transmission. Left ovary measured 2.8 x 2.8 x 2.1 cm with normal low resistance vascularity color flow. Previously demonstrated abnormality of the left ovary is not seen on this exam. Impression: 1. There is a nonspecific focus of heterogeneous echogenicity of the right ovary which could be sequela of hemorrhagic cyst, no free fluid. There is thickening of the endometrium although no intrauterine gestational sac demonstrated at this time. There is a small hypoechoic collection with internal echoes in the cervix, features which could be seen with complex fluid or blood products, not significantly hypervascular. Sequela of a complex nabothian cyst is also included in the differential considerations. Correlation with serial quantitative beta hCG values and short-term follow-up imaging may be beneficial. Electronically signed by: Ugo Guerrero MD (10/11/2018 2:15 PM) [id number]
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
[2018-10-13 21:08] LABS: GC PROBE Negative (Negative)
== END 2018-10-11 14:21 | disposition left against medical advice (07) ==
LOC: ER 12:00
DX: O20.0 Threatened abortion (principal); R10.2 Pelvic and perineal pain; O34.81 Maternal care for other abnormalities of pelvic organs, first trimester; N88.8 Other specified noninflammatory disorders of cervix uteri; Z98.890 Other specified postprocedural states; Z3A.00 Weeks of gestation of pregnancy not specified
CPT/HCPCS: 76801; 76817; 80048; 81001; 81025; 84702; 85025; 87491; 87591; 99285; G0480; Q0111; 36415

== ENCOUNTER → 2019-07-05 | Outpatient (CLI) | payer OTHER ==
--- NOTE | 2019-07-05 16:01 | RAD ---
OB < 14 WKS History: Uterine size discrepancy Comparison: There is no previous relevant exam available Findings: Multiple transabdominal sonographic images of the pelvis are submitted. Cervix measured 4.5 cm in length. There is a single intrauterine fetus. There is breech presentation. Gestational sac morphology is within normal limits. Amniotic fluid volume is subjectively within normal limits, also estimated LAXMI 13.8 cm. There is posterior placenta. movement was noted by technologist. There is demonstrable cardiac activity 140 bpm. Maternal adnexal regions are not demonstrated. The entirety of the anatomy is not accurately evaluated at this age of the . Biometry data are as follows: Biparietal diameter 3.59 cm corresponds 17 weeks 0 days Head circumference 13.81 cm corresponds 17 weeks 1 day Abdominal circumference 11.12 cm corresponds 17 weeks 0 days Femur length 2.25 cm corresponding 16 weeks 5 days HC/AC ratio within normal limits 1.24 Adjusted ultrasound age 17 weeks 0 days with estimated delivery date by ultrasound 12/13/2019 LMP age 16 weeks 5 days with estimated delivery date of 12/15/2019 Impression: 1. There is a single viable intrauterine fetus in breech presentation. Adjusted ultrasound age is 17 weeks 0 days with estimated delivery date by ultrasound 12/13/2019. Electronically signed by: Ugo Guerrero MD (07/05/2019 3:58 PM) [email or web address]
== END | disposition home or self-care (01) ==
LOC: US 15:07
PROVIDERS: ATTEND Obstetrics & Gynecology
DX: O32.1XX0 Maternal care for breech presentation, not applicable or unspecified (principal); Z3A.17 17 weeks gestation of pregnancy
CPT/HCPCS: 76801

== ENCOUNTER → 2019-07-24 | Outpatient (CLI) | payer OTHER ==
--- NOTE | 2019-07-24 17:30 | RAD ---
EXAM: Ultrasound OB Greater than 14 weeks INDICATION: Size discrepancy TECHNIQUE: Real-time obstetrical ultrasound was performed with permanent freeze-frame documentation. COMPARISON: July 05, 2019 OB ultrasound FINDINGS: POSITION: Breech HEART RATE: 1 33 bpm LAXMI: Not measured. Subjectively normal. PLACENTA: Posterior CERVICAL LENGTH: 4.1 cm MATERNAL UTERUS: Unremarkable. MATERNAL ADNEXA: Unremarkable. AGE/DATES: Gestational Age by LMP: 19 weeks 3 days Gestation Age by US: 19 weeks 4 days EDC by LMP: December 15, 2019 EDC by US: December 14, 2019 WEIGHT: 325 grams +/- 48 grams PERCENTILE WEIGHT: Not estimated BIOMETRIC PARAMETERS: BPD: 4.3 cm corresponding with 19 weeks 0 days HC: 16.7 cm corresponding with 19 weeks 2 days AC: 14.8 cm corresponding with 20 weeks 0 days FL: 3.3 cm corresponding with 20 weeks 1 day ANATOMY: CARDIAC: Normal four chamber heart. The left ventricle outflow tract is normal. The right ventricle outflow tract was not well seen. UMBILICAL CORD: Normal 3 vessel cord. Normal cord insertion. BRAIN: Unremarkable. NOSE/LIPS: Unremarkable. SPINE: Unremarkable. EXTREMITIES: Unremarkable. STOMACH: Unremarkable. KIDNEYS: Unremarkable. BLADDER: Unremarkable. IMPRESSION: Normal OB ultrasound demonstrating a single viable fetus in breech position. Estimated gestational age of 19 weeks and 4 days and EDC of December 14, 2019.. anatomic survey showed no gross abnormalities although anatomic survey did not fully visualize the right ventricle outflow tract on this exam. Electronically signed by: David Martinez MD (07/24/2019 5:28 PM) [id number]
== END ==
LOC: US 11:51
PROVIDERS: ATTEND Obstetrics & Gynecology
DX: O32.1XX0 Maternal care for breech presentation, not applicable or unspecified (principal); O26.842 Uterine size-date discrepancy, second trimester; Z3A.19 19 weeks gestation of pregnancy
CPT/HCPCS: 76805

== ENCOUNTER → 2019-09-18 | Outpatient (CLI) | payer OTHER ==
[2019-09-18 12:37] LABS: BASO % 1 % (0-3); EOS # 0.1 x10^3/uL (0.0-0.7); EOS % 1 % (0-3); HEMATOCRIT 34.4 % (36.0-47.0); HEMOGLOBIN 11.4 g/dL (12.0-15.5); LYMPH # 1.3 x10^3/uL (1.0-4.8); LYMPH % 18 % (24-48); MEAN CORPUSCULAR HEMOGLOBIN 29 pg (25-35); MEAN CORPUSCULAR HGB CONC 33 g/dL (31-37); MEAN CORPUSCULAR VOLUME 88 fL (79-100); MONO # 0.6 x10^3/uL (0.0-1.1); MONO % 8 % (0-9); NEUT # 5.2 x10^3/uL (1.8-7.7); NEUT % 73 % (31-73); PLATELET COUNT 193 x10^3/uL (140-400); RED BLOOD COUNT 3.91 x10^6/uL (3.50-5.40); RED CELL DISTRIBUTION WIDTH 13.6 % (11.5-14.5); WHITE BLOOD COUNT 7.2 x10^3/uL (4.0-11.0)
== END | disposition home or self-care (01) ==
LOC: LAB 11:12
PROVIDERS: ATTEND Obstetrics & Gynecology
DX: Z32.01 Encounter for pregnancy test, result positive (principal); O09.90 Supervision of high risk pregnancy, unspecified, unspecified trimester
CPT/HCPCS: 36415; 82950; 85025; 86592; 86703; 86762; 86850; 86900; 86901; 87340

== ENCOUNTER 2019-09-24 21:57 | Emergency (ER) | payer OTHER ==
[~2019-09-24] VITALS: Ht 157.5 cm; Wt 86.3 kg
[2019-09-24 22:16] VITALS: BP 126/68
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
== END 2019-09-24 22:50 | disposition home or self-care (01) ==
LOC: ER 21:57
DX: O9A.213 Injury, poisoning and certain other consequences of external causes complicating pregnancy, third trimester (principal); S80.01XA Contusion of right knee, initial encounter; S00.83XA Contusion of other part of head, initial encounter; S39.91XA Unspecified injury of abdomen, initial encounter; R10.2 Pelvic and perineal pain; Z3A.28 28 weeks gestation of pregnancy; Y08.89XA Assault by other specified means, initial encounter; Y93.89 Activity, other specified; Y92.89 Other specified places as the place of occurrence of the external cause; Y99.8 Other external cause status
CPT/HCPCS: 99281

== ENCOUNTER 2019-09-24 22:53 | Observation (INO) | payer OTHER ==
[2019-09-24 22:16] VITALS: BP 126/68
[2019-09-24] MEDS ORDERED: IV RINGERS,LACTATED 1000ML 1,000 ML IV SCH (23:00)
[2019-09-24] MEDS ORDERED: ACETAMINOPHEN 500 MG TABLET PO PRN (23:00)
[2019-09-24 23:09] LABS: BILIRUBIN,URINE NEGATIVE (NEG); CLARITY,URINE CLEAR; COLOR,URINE YELLOW; NITRITE,URINE NEGATIVE (NEG); PROTEIN,URINE 100 mg/dL (NEG-TRACE); UROBILINOGEN,URINE 0.2 mg/dL (0.2 mg/dL)
[2019-09-24 23:15] LABS: AMPHETAMINE/METHAMPHETAMINE NEG (NEG); BARBITURATES NEG (NEG); BENZODIAZEPINES NEG (NEG); CANNABINOIDS POS (NEG); COCAINE NEG (NEG); METHADONE NEG (NEG); OPIATES NEG (NEG); PHENCYCLIDINE NEG (NEG)
[2019-09-24 23:17] LABS: BACTERIA,URINE MODERATE /HPF (0-FEW); RBC,URINE RARE /HPF (0-2); SQUAMOUS EPITHELIAL CELL,UR MANY /LPF
--- NOTE | 2019-09-25 02:28 | RAD ---
OB LIMITED Clinical Indication: Kneed in abdomen. Pain. Comparison: OB ultrasound July 24, 2019. TECHNIQUE: Real-time ultrasound imaging of the gravid uterus is performed using transabdominal window. Findings: There is a single intrauterine gestation in vertex presentation. The placenta is posterior in position. No acute abnormality is seen. The amount of amniotic fluid appears appropriate. Amniotic fluid index is 20 cm. Cervix is not visualized. Biometrical data: PD = 7.1 cm for 28 weeks 4 days. HC = 26.3 cm for 28 weeks 4 days. AC = 24.5 cm for 28 weeks 5 days. FL = 5.4 cm for 28 weeks 3 days. HC/AC ratio = 1.08. Overall, the estimated sonographic gestational age is 28 weeks and 4 days for an estimated date of delivery of December 14, 2019. Estimated weight is 1255 +/- 186 grams. The estimated heart rate is 136 beats per minute. Impression: 1. Single live intrauterine gestation with estimated sonographic gestational age of 28 weeks and 4 days. 2. Placenta is intact. 3. Amniotic fluid is adequate. Electronically signed by: Aj Howell MD (09/25/2019 2:25 AM) [id number]
== END 2019-09-25 02:36 | disposition home or self-care (01) ==
LOC: 3 SO LND 22:53
PROVIDERS: ADMIT Obstetrics & Gynecology; ATTEND Obstetrics & Gynecology
DX: O9A.213 Injury, poisoning and certain other consequences of external causes complicating pregnancy, third trimester (principal); O26.893 Other specified pregnancy related conditions, third trimester; R10.30 Lower abdominal pain, unspecified; Z3A.28 28 weeks gestation of pregnancy; Z79.899 Other long term (current) drug therapy; Y04.2XXA Assault by strike against or bumped into by another person, initial encounter; Y93.89 Activity, other specified; Y92.513 Shop (commercial) as the place of occurrence of the external cause; Y99.8 Other external cause status
CPT/HCPCS: 76815; 80307; 81001; 87086; G0378; G0379

== ENCOUNTER → 2020-01-23 | Outpatient (CLI) | payer OTHER | END | disposition home or self-care (01) | LOC: LAB 12:57 | PROVIDERS: ATTEND Obstetrics & Gynecology | DX: Z20.828 Contact with and (suspected) exposure to other viral communicable diseases (principal) | CPT/HCPCS: U0003-CS ==

== ENCOUNTER 2020-01-26 06:54 | Day surgery (SDC) | payer OTHER ==
[~2020-01-26 06:54] MED LIST changes: +DEXAMETHASONE SOD PHOS 4 MG/ML VIAL ONE; +LIDOCAINE 2% PF 5 ML VIAL. ONE; +ONDANSETRON PF 4 MG/2 ML VIAL. ONE; +PROPOFOL 10 MG/ML (20ML) VIAL. IV ONE; +ROCURONIUM 50 MG/5 ML VIAL. ONE; +SUCCINYLCHOLINE 200 MG/10 ML VIAL. ONE
[2020-01-26] MEDS ORDERED: PROCHLORPERAZINE 10 MG/2 ML VIAL. IV PRN (07:00)
[2020-01-26] MEDS ORDERED: HYDROmorphone 2 MG/ML VIAL IV PRN (07:00)
[2020-01-26] MEDS ORDERED: IV RINGERS,LACTATED 1000ML 1,000 ML IV SCH (07:00)
[2020-01-26] MEDS ORDERED: fentaNYL PF VIAL 100 MCG/2 ML VIAL IV PRN ×2 (07:00)
[2020-01-26] MEDS ORDERED: MORPHINE SULFATE 2 MG/ML VIAL. IV PRN (07:00)
[2020-01-26] MEDS ORDERED: BUPIVACAINE-EPI 0.5%-1:200000 MPF 30 ML VIAL. ONE (07:05)
[2020-01-26] MEDS ORDERED: BUPIVACAINE MPF 0.25% 30 ML VIAL. ONE (07:05)
[2020-01-26] MEDS ORDERED: NEOSTIGMINE METHYLSULFATE 5 MG/5 ML SYRINGE. ONE (07:32)
[2020-01-26] MEDS ORDERED: GLYCOPYRROLATE 1 MG/5 ML VIAL. ONE (07:32)
[2020-01-26] MEDS ORDERED: ROCURONIUM 50 MG/5 ML VIAL. ONE (07:32)
[2020-01-26] MEDS ORDERED: SEVOFLURANE 61 TO 120 MINUTES. IH ONE (07:32)
[2020-01-26] MEDS ORDERED: fentaNYL PF VIAL 100 MCG/2 ML VIAL ONE ×2 (07:32→09:22)
[2020-01-26] MEDS ORDERED: ONDANSETRON PF 4 MG/2 ML VIAL. ONE (07:33)
[2020-01-26] MEDS ORDERED: LIDOCAINE 2% PF 5 ML VIAL. ONE (07:33)
[2020-01-26] MEDS ORDERED: PROPOFOL 10 MG/ML (20ML) VIAL. IV ONE (07:33)
[2020-01-26] MEDS ORDERED: MIDAZOLAM HCL/PF 2 MG/2 ML VIAL. ONE (07:33)
[2020-01-26] MEDS ORDERED: DEXAMETHASONE SOD PHOS 4 MG/ML VIAL ONE (07:33)
--- NOTE | 2020-01-26 08:55 | PDOC ---
BRIEF OPERATIVE NOTE Date: Jan 26, 2020 Pre-Op Diagnosis Sterilization Post-Op Diagnosis Same Procedure Performed [facility] Rico. Salpingectomy Surgeon Dr. Khan Anesthesia Type: General Blood Loss 5 ml Specimens Obtained rico. fallopian tubes Findings nml size uterus, rico. adhesions adnexal structures, adesions around bladder; nml ovaries rico. Complications none Operative Note see dictation ADAL KHAN Jr, MD Jan 26, 2020 08:55
--- NOTE | 2020-01-26 08:56 | DISCH ---
DISCHARGE INSTRUCTIONS Condition on Discharge Condition on Discharge: Stable Activity After Discharge Activity Instructions for Disc: Activity as tolerated Bathing Instructions: Shower-keep dressing dry Lifting Instructions after Dis: No heavy lifting, No pulling or pushing, Do not lift >10 pounds Exercise Instruction after Dis: Progress as tolerated Driving Instructions after Dis: Do not drive today Weight Bearing Status after Di: As tolerated Diet after Discharge Diet after Discharge: Regular Diet Texture: Regular Contacting the DR. after DC Call your doctor for: If your condition worsens Follow-Up Follow up with: Dr. Khan in 1 week Treatment/Equipment after DC Adaptive Equipment Issued: None ADAL KHAN Jr, MD Jan 26, 2020 08:56
[2020-01-26] MEDS ORDERED: PROCHLORPERAZINE 10 MG/2 ML VIAL. ONE (09:00)
[2020-01-26] MEDS ORDERED: oxyCODONE/APAP 5/325 1 TAB TABLET PO ONE ×2 (09:15)
[2020-01-26] MEDS ORDERED: OXYC1TAB15 PO (09:18)
--- NOTE | 2020-01-26 09:21 | OP ---
DATE OF SURGERY: 01/26/2020 PREOPERATIVE DIAGNOSIS: Sterilization. POSTOPERATIVE DIAGNOSIS: Sterilization. PROCEDURE: Laparoscopic bilateral salpingectomy. SURGEON: Amarjit Khan MD ANESTHESIA: GETA. ESTIMATED BLOOD LOSS: 5 mL. COMPLICATIONS: None. FINDINGS: Normal size uterus, adhesions of the adnexal structures bilaterally. Adhesions around the bladder as well. Normal ovaries bilaterally. SUMMARY: A 29-year-old 6, para 3-8-3, desired permanent sterilization. The patient was counseled on risks, benefits and expectations as well as the failure rate and voiced clear understanding to proceed. DESCRIPTION OF PROCEDURE: The patient was taken to surgery suite and placed in dorsal lithotomy position. She was prepped with Betadine solution for vaginal prep and ChloraPrep for abdominal prep. After adequate anesthesia, bivalve speculum was placed vaginally. Anterior lip of the cervix grasped with single tooth tenaculum. Uterine acorn manipulator was then placed. The bivalve speculum was removed. Attention was now placed on abdomen. Small vertical incision was made just below the umbilicus with a scalpel. The Veress needle was then placed through the infraumbilical incision site. The abdomen was allowed to insufflate up to 1-1/2 liters CO2 gas. The Veress needle was then removed, 5 mm trocar was placed. The scope was positioned. The uterus appeared normal size. There were adhesions around the bladder area as well as both adnexal structures. The patient did have previous ectopic , which she was not sure if she had tube removed or not. On visualizing, there appeared to be fallopian tubes bilaterally. Two additional incisions made in the left lower quadrant with a 5 mm trocar was placed along with 8 mm trocar. With the aid of Lavelle graspers, the left fallopian tube was grasped. The EnSeal device was used to dissect the left fallopian tube from the adhesions and removed the left fallopian tube. The right fallopian tube was grasped and dissected away from the pelvic sidewall adhesions and a distal salpingectomy was performed with the right fallopian tube. Both pedicles were hemostatic. The trocars were then removed under direct visualization. Abdomen was allowed to deflate as much as possible along with mechanical manipulation. The three skin incisions were reapproximated using 4-0 Vicryl suture in subcuticular manner. A 0.5% Marcaine with epinephrine was injected at each incision site. Single tooth tenaculum and uterine acorn manipulator were removed. The patient tolerated the procedure well and was taken to recovery room in stable condition. Sponge and needle count correct x 3. AMARJIT KHAN MD DR: MARK/dawit JOB#: [id number] / [id number]
[2020-01-26 10:15] VITALS: BP 126/85
== END 2020-01-26 11:18 | disposition home or self-care (01) ==
LOC: SURG 06:54
PROVIDERS: ATTEND Obstetrics & Gynecology
DX: Z30.2 Encounter for sterilization (principal); Z79.899 Other long term (current) drug therapy
CPT/HCPCS: 58661; 81025; A7015; J0330; J0780; J1100; J2250; J2405; J2704; J2710; J3010; J3490; J7120

== ENCOUNTER 2020-02-26 08:39 | Emergency (ER) | payer OTHER ==
[~2020-02-26] VITALS: Ht 157.5 cm; Wt 80.5 kg
[~2020-02-26 08:39] MED LIST changes: -DEXAMETHASONE SOD PHOS 4 MG/ML VIAL ONE; -LIDOCAINE 2% PF 5 ML VIAL. ONE; -ONDANSETRON PF 4 MG/2 ML VIAL. ONE; -PROPOFOL 10 MG/ML (20ML) VIAL. IV ONE; -ROCURONIUM 50 MG/5 ML VIAL. ONE; -SUCCINYLCHOLINE 200 MG/10 ML VIAL. ONE
[2020-02-26 09:18] VITALS: BP 134/80
[2020-02-26] MEDS ORDERED: DEXAMETHASONE 4 MG TABLET PO STA (09:29)
--- NOTE | 2020-02-26 09:54 | ED.ADGEN ---
Past Medical History Past Medical History: No Pertinent History Additional Past Medical Histor: ectopic , BV, OVARIAN CYST Past Surgical History: , Tubal ligation Additional Past Surgical Histo: ectopic,2 Smoking Status: Never Smoker Alcohol Use: None Drug Use: None Adult General Chief Complaint Chief Complaint: SORE THROAT HPI HPI Patient is a 30 year old female who presents with sore throat and difficulty swallowing. Is not taking medications due to pain. Also complaining of pain in her left ear when swallowing, has also had a productive cough of yellow phlegm for the past week. Has had sweats but denies any fever. She has a child at home was ill with similar symptoms. Review of Systems Review of Systems Constitutional: Denies fever or chills. [] Eyes: Denies change in visual acuity. [] HENT: Denies nasal congestion , but has ear pain and sore throat. [] Respiratory: Has cough but no shortness of breath. [] Cardiovascular: Denies chest pain or edema. [] GI: Denies abdominal pain, nausea, vomiting, bloody stools or diarrhea. [] : Denies dysuria. [] Musculoskeletal: Denies back pain or joint pain. [] Integument: Denies rash. [] Neurologic: Denies headache, focal weakness or sensory changes. [] Endocrine: Denies polyuria or polydipsia. [] Lymphatic: Denies swollen glands. [] Psychiatric: Denies depression or anxiety. [] Current Medications Current Medications Current Medications Medications (Trade) Dose Ordered Sig/Tanner Start Time Stop Time Status Last Admin Dose Admin Dexamethasone (Decadron) 10 mg 1X STAT 02/26/20 09:29 02/26/20 09:30 DC 02/26/20 09:37 10 MG Allergies Allergies Allergies Coded Allergies Type Severity Reaction Last Updated Verified No Known Drug Allergies 01/23/20 No Physical Exam Physical Exam Constitutional: Well developed, well nourished, no acute distress, non-toxic appearance. [] HENT: Normocephalic, atraumatic, bilateral external ears normal, oropharynx moist, no oral exudates, nose normal. [] Eyes: PERRLA, EOMI, conjunctiva normal, no discharge. [] Neck: Normal range of motion, no tenderness, supple, no stridor. [] Cardiovascular:Heart rate regular rhythm, no murmur [] Lungs & Thorax: Bilateral breath sounds clear to auscultation [] Skin: Warm, dry, no erythema, no rash. [] Back: No tenderness, no CVA tenderness. [] Extremities: No tenderness, no cyanosis, no clubbing, ROM intact, no edema. [] Neurologic: Alert and oriented X 3, normal motor function, normal sensory function, no focal deficits noted. [] Psychologic: Affect normal, judgement normal, mood normal. [] Current Patient Data Vital Signs Vital Signs Date Time Temp Pulse Resp B/P (MAP) Pulse Ox O2 Delivery O2 Flow Rate FiO2 02/26/20 09:18 98.1 65 16 134/80 (98) 97 Room Air 98.1 Lab Values Laboratory Tests Test 02/26/20 09:33 Group A Streptococcus Rapid Negative (NEGATIVE) EKG EKG [] Radiology/Procedures Radiology/Procedures Chest, PA and Lateral: Technique: PA and lateral views of the chest were obtained. History: Pneumonia. Comparison: None. Findings: The heart and pulmonary vasculature appear within normal limits. The lungs are clear. The pleural margins are clear. Impression: No acute chest process is seen. [] Course & Med Decision Making Course & Med Decision Making Pertinent Labs and Imaging studies reviewed. (See chart for details) [] Dragon Disclaimer Dragon Disclaimer This electronic medical record was generated, in whole or in part, using a voice recognition dictation system. Departure Departure Impression: Primary Impression: Acute bronchitis Disposition: HOME, SELF-CARE Condition: STABLE Referrals: NO PCP (PCP) Follow up with your doctor Patient Instructions: Acute Bronchitis, [id number] Scripts Azithromycin (ZITHROMAX) 250 Mg Tablet 1 PKG PO UD, #6 TAB Prov: REJI GAINES MD 02/26/20 REJI GAINES MD Feb 26, 2020 09:54
--- NOTE | 2020-02-26 10:00 | RAD ---
Chest, PA and Lateral: Technique: PA and lateral views of the chest were obtained. History: Pneumonia. Comparison: None. Findings: The heart and pulmonary vasculature appear within normal limits. The lungs are clear. The pleural margins are clear. Impression: No acute chest process is seen. Electronically signed by: Elmer Escoto MD (02/26/2020 9:57 AM) [id number]
[2020-02-26] MEDS ORDERED: AZIT250T PO (11:04)
== END 2020-02-26 11:12 | disposition home or self-care (01) ==
LOC: ER 08:39
DX: J20.9 Acute bronchitis, unspecified (principal); R13.10 Dysphagia, unspecified; R05 Cough; H92.02 Otalgia, left ear; Z98.51 Tubal ligation status; Z98.890 Other specified postprocedural states
CPT/HCPCS: 71046; 87070; 87880; 99284

== ENCOUNTER → 2020-04-30 | Outpatient (CLI) | payer OTHER ==
[~2020-04-30] MED LIST changes: +AZIT250T PO; +METR70GE2 VG
== END ==
LOC: LAB 08:45
PROVIDERS: ATTEND Obstetrics & Gynecology
DX: Z01.812 Encounter for preprocedural laboratory examination (principal); Q06.1 Hypoplasia and dysplasia of spinal cord; Z20.828 Contact with and (suspected) exposure to other viral communicable diseases
CPT/HCPCS: U0003

== ENCOUNTER 2020-05-02 07:11 | Day surgery (SDC) | payer OTHER ==
[~2020-05-02] VITALS: Ht 177.8 cm; Wt 102.1 kg
[~2020-05-02 07:11] MED LIST changes: +HYDROmorphone 2 MG/ML VIAL IV PRN; +LIDOCAINE 1% PF 2 ML VIAL. ID PRN; +MORPHINE SULFATE 2 MG/ML VIAL. IV PRN; +ONDANSETRON PF 4 MG/2 ML VIAL. IV PRN; +PROCHLORPERAZINE 10 MG/2 ML VIAL. IV PRN; +fentaNYL PF VIAL 100 MCG/2 ML VIAL IV PRN
[2020-05-02] MEDS ORDERED: ceFAZolin SODIUM IV Push 1 GM VIAL. IVP PRN (07:45)
[2020-05-02] MEDS: IV RINGERS,LACTATED 1000ML 1,000 ML IV SCH (07:47)
[2020-05-02] MEDS ORDERED: DEXAMETHASONE SOD PHOS 4 MG/ML VIAL ONE (08:23)
[2020-05-02] MEDS ORDERED: PROPOFOL 10 MG/ML (20ML) VIAL. IV ONE (08:23)
[2020-05-02] MEDS ORDERED: LIDOCAINE 2% PF 5 ML VIAL. ONE (08:23)
[2020-05-02] MEDS ORDERED: MIDAZOLAM HCL/PF 2 MG/2 ML VIAL. ONE (08:24)
[2020-05-02] MEDS ORDERED: ONDANSETRON PF 4 MG/2 ML VIAL. ONE (08:24)
[2020-05-02] MEDS ORDERED: fentaNYL PF VIAL 100 MCG/2 ML VIAL ONE ×2 (08:25→10:30)
[2020-05-02] MEDS ORDERED: KETOROLAC 30 MG/ML VIAL. ONE (09:38)
[2020-05-02] MEDS ORDERED: SEVOFLURANE 31 TO 60 MINUTES. IH ONE (09:40)
[2020-05-02] MEDS ORDERED: SEVOFLURANE 16 TO 30 MINUTES. IH ONE (09:40)
[2020-05-02] MEDS: LIDOCAINE 1%/EPI 1:100,000 20 ML VIAL. ONE (09:41)
[2020-05-02] MEDS: FERRIC SUBSULFATE 8 ML SOL.W.APPL TP ONE (09:41)
--- NOTE | 2020-05-02 09:58 | PDOC ---
BRIEF OPERATIVE NOTE Date: May 02, 2020 Pre-Op Diagnosis Cervical dysplasia Post-Op Diagnosis SAme Procedure Performed Cervical cone biopsy Surgeon Dr. Khan Anesthesia Type: General Blood Loss 10 ml Specimens Obtained anterior and posterior lip of cervix Findings cervical dysplasia Complications none Operative Note see dictation ADAL KHAN Jr, MD May 02, 2020 09:58
--- NOTE | 2020-05-02 10:00 | DISCH ---
DISCHARGE INSTRUCTIONS Condition on Discharge Condition on Discharge: Stable Activity After Discharge Activity Instructions for Disc: Activity as tolerated Bathing Instructions: Shower-keep dressing dry Lifting Instructions after Dis: No heavy lifting, No pulling or pushing, Do not lift >10 pounds Exercise Instruction after Dis: Progress as tolerated Driving Instructions after Dis: Do not drive today Weight Bearing Status after Di: As tolerated Diet after Discharge Diet after Discharge: Regular Diet Texture: Regular Contacting the DR. after DC Call your doctor for: If your condition worsens Follow-Up Follow up with: Dr. Sahni in 1 week Treatment/Equipment after DC Adaptive Equipment Issued: None ADAL SAHNI Jr, MD May 02, 2020 10:00
--- NOTE | 2020-05-02 10:08 | OP ---
DATE OF SURGERY: PREOPERATIVE DIAGNOSIS: Cervical dysplasia. POSTOPERATIVE DIAGNOSIS: Cervical dysplasia. PROCEDURE: Cervical cone biopsy. SURGEON: Amarjit Khan MD. ANESTHESIA: GETA. ESTIMATED BLOOD LOSS: 10 mL. COMPLICATIONS: None. FINDINGS: Cervical dysplasia. SPECIMENS: Anterior and posterior lip of the cervix. SUMMARY: A 30-year-old with cervical dysplasia, requiring cervical cone biopsy. She was counseled on risks, benefits and expectations and voiced clear understanding to proceed. DESCRIPTION OF PROCEDURE: The patient was taken to surgery suite and placed in dorsal lithotomy position. She was prepped with Betadine solution and draped in sterile fashion. After adequate anesthesia, weighted speculum and curved [place] placed vaginally. Anterior lip of the cervix was grasped with single tooth tenaculum, 2-0 Vicryl sutures placed at the 3 o'clock and 9 o'clock position to help stabilize the cervix, 1% lidocaine with epinephrine was injected in a circumferential manner. The cold knife was used to perform a cone biopsy removing the anterior and posterior lip of the cervix. The remaining cervix was cauterized with Bovie cautery. Monsel solution was also placed for better hemostasis. Weighted speculum and single tooth tenaculum were all removed. The patient tolerated the procedure well and was taken to recovery room in stable condition. Sponge and needle count correct x 3. AMARJIT KHAN MD DR: MARK/dawit JOB#: [id number] / [id number]
[2020-05-02] MEDS ORDERED: OXYC1TAB15 PO (10:22)
[2020-05-02] MEDS: fentaNYL PF VIAL 100 MCG/2 ML VIAL IV PRN (10:34)
[2020-05-02] MEDS: oxyCODONE/APAP 5/325 1 TAB TABLET PO ONE (10:38)
[2020-05-02 11:15] VITALS: BP 125/55
== END 2020-05-02 11:56 | disposition home or self-care (01) ==
LOC: SURG 07:11
PROVIDERS: ATTEND Obstetrics & Gynecology
DX: N87.9 Dysplasia of cervix uteri, unspecified (principal); E66.9 Obesity, unspecified; Z79.899 Other long term (current) drug therapy; Z98.51 Tubal ligation status; Z98.890 Other specified postprocedural states; Z68.32 Body mass index [BMI] 32.0-32.9, adult
CPT/HCPCS: 57520; 81025; J0690; J1100; J1885; J2250; J2405; J2704; J3010; J3490; J7120